=== PATIENT | male | born 1990 | race Caucasian/White ===

== ENCOUNTER 2018-02-14 14:34 | Emergency (ER) | END 2018-02-15 02:49 ==

== ENCOUNTER 2018-11-25 19:23 | Emergency (ER) | payer OTHER ==
[~2018-11-25] VITALS: Ht 172.7 cm; Wt 72.7 kg
[2018-11-25 19:59] VITALS: Ht 172.7 cm; Wt 72.7 kg
[2018-11-25] MEDS ORDERED: NALO4SPR NS (21:26)
--- NOTE | 2018-11-25 21:27 | ERD ---
ER Documentation Chief Complaint Chief Complaint BIB [facility] for heroin overdose. HPI 28-year-old male in by ambulance after heroin overdose. He was given Narcan prior to arrival with improvement of his symptoms. Patient does admit to using IV heroin today as well as other substances including alcohol, methamphetamines, and marijuana. Currently he is denying any symptoms of chest pain, shortness of breath, abdominal pain, headache, nausea, or chills. ROS All systems reviewed and are negative except as per history of present illness. Medications Home Meds Active Scripts Naloxone HCl nasal spray (Narcan 4 mg/0.1 mL nasal) 4 Mg [place], 4 MG NS .Q2-3MIN for OPIOID OVERDOSE, #2 SPRAY 0 Refills [place] 0.1 mL into one nostril. Repeat with second device into other nostril after 2-3 minutes if no or minimal response Prov:SANTIAGO PERRIN MD 11/25/18 Allergies Allergies: Coded Allergies: No Known Allergies (Unverified Allergy, Unknown, 02/14/18) PMhx/Soc Medical and Surgical Hx: pt denies Medical Hx, pt denies Surgical Hx Hx Miscellaneous Medical Probl: Yes (DRUG ABUSE) Hx Alcohol Use: Yes Hx Substance Use: Yes Smoking Status: Current some day smoker FmHx Family History: No diabetes Physical Exam Vitals Vital Signs Date Temp Pulse Resp B/P (MAP) Pulse Ox O2 O2 Flow FiO2 Time Delivery Rate 11/25/18 93 16 136/98 96 Room Air 21:34 (111) 11/25/18 91 16 126/90 98 Room Air 20:33 (102) 11/25/18 96.4 75 17 156/68 99 19:59 (97) Physical Exam Const: No acute distress. Disheveled, appears older than stated age Head: Atraumatic Eyes: Normal Conjunctiva, PERRLA, EOMI, oriented, normal speech, no facial asymmetry, moving all extremities ENT: Normal External Ears, Nose and Mouth. Neck: Full range of motion. No meningismus. Resp: Clear to auscultation bilaterally Cardio: Regular rate and rhythm, no murmurs Abd: Soft, non tender, non distended. Normal bowel sounds Skin: No petechiae or rashes Back: No midline or flank tenderness Ext: Normal to inspection and palpation. No cyanosis, or edema Neur: Awake and alert Psych: Normal Mood and Affect Procedures/MDM Patient presents after heroin overdose. Currently he is awake and alert, mentating normally. Vitals are unremarkable. Patient was observed in the ER for about 2 hours without any recurrence of overdose symptoms. Patient was discharged with a prescription for narcan. His girlfriend was at bedside and w as explained on how to use the medication. Patient's blood pressure was elevated (>120/80) but appears stable without evidence of hypertension emergency or urgency. The patient was counseled about the risks of hypertension and urged to pursue outpatient monitoring and therapy within a week with their primary care physician. Departure Diagnosis: Primary Impression: Accidental overdose of heroin Encounter type: initial encounter Qualified Codes: T40.1X1A - Poisoning by heroin, accidental (unintentional), initial encounter Condition: Stable Patient Instructions: Overdose, Opiate SANTIAGO PERRIN MD November 25, 2018 21:27
[2018-11-25 21:34] VITALS: BP 136/98; PULSE 93; RESP 16
== END 2018-11-25 21:37 | disposition home or self-care (01) ==
LOC: E/R 19:23
DX: T40.1X1A Poisoning by heroin, accidental (unintentional), initial encounter (principal)
CPT/HCPCS: 99282